=== PATIENT | female | born 2005 | race Caucasian/White ===

== ENCOUNTER 2025-02-27 14:46 | Outpatient (CLI) | payer BC | END 2025-02-27 14:47 | disposition home or self-care (01) | LOC: SCSMRI 14:46 | PROVIDERS: ATTEND Psychiatry & Neurology Neurology | DX: N80.9 Endometriosis, unspecified (principal); N94.6 Dysmenorrhea, unspecified; R93.41 Abnormal radiologic findings on diagnostic imaging of renal pelvis, ureter, or bladder | CPT/HCPCS: 72197 ==